=== PATIENT | female | born 2000 | race Hispanic/Latino ===

== ENCOUNTER → 2019-05-16 | Outpatient (REF) | payer OTHER, MEDICAID ==
[2019-05-16 12:45] LABS: BASO % 0.4 % (0.0-1.0); EOS # 0.2 10^3/uL (0.0-0.5); EOS % 2.5 % (0.0-3.0); HEMATOCRIT 45.1 % (36.0-47.0); HEMOGLOBIN 14.7 g/dl (12.0-15.5); LYMPH # 2.7 10^3/uL (1.5-5.0); LYMPH % 37.5 % (24.0-44.0); MEAN CORPUSCULAR HEMOGLOBIN 29.6 pg (27.0-33.0); MEAN CORPUSCULAR HGB CONC 32.6 g/dl (32.0-36.5); MEAN CORPUSCULAR VOLUME 90.7 fl (80.0-96.0); MONO # 0.7 10^3/uL (0.0-0.8); NEUTROPHILS # 3.6 10^3/uL (1.5-8.5); NEUTROPHILS % 50.5 % (36.0-66.0); PLATELET COUNT, AUTOMATED 314 10^3/uL (150-450); RED BLOOD COUNT 4.97 10^6/uL (4.00-5.40); WHITE BLOOD COUNT 7.2 10^3/uL (4.0-10.0)
[2019-05-16 12:50] LABS: ALBUMIN 3.9 GM/DL (3.2-5.2); ALT/SGPT 31 U/L (12-78); BILIRUBIN,TOTAL 0.2 MG/DL (0.2-1.0); BLOOD UREA NITROGEN 13 MG/DL (7-18); CARBON DIOXIDE LEVEL 30 MEQ/L (21-32); CHLORIDE LEVEL 105 MEQ/L (98-107); CHOLESTEROL LEVEL 160 MG/DL (<200); CHOLESTEROL RISK RATIO 2.424 (<5); CREATININE FOR GFR 0.77 MG/DL (0.55-1.30); GLUCOSE, FASTING 103 MG/DL (70-100); HDL CHOLESTEROL 66 MG/DL (>40); LDL CHOLESTEROL 76 MG/DL (<100); NON-HDL-C 94 MG/DL; POTASSIUM SERUM 4.2 MEQ/L (3.5-5.1); SODIUM LEVEL 141 MEQ/L (136-145); TOTAL PROTEIN 7.1 GM/DL (6.4-8.2); TRIGLYCERIDES LEVEL 89 MG/DL (<150)
== END ==
LOC: M LAB REF 11:44
PROVIDERS: ATTEND Family Medicine
DX: Z00.01 Encounter for general adult medical examination with abnormal findings (principal)

== ENCOUNTER 2021-04-27 12:26 | Emergency (ER) | payer BC, MEDICAID, OTHER, SELFPAY ==
[~2021-04-27] VITALS: Ht 157.5 cm; Wt 96.8 kg
[2021-04-27 14:16] VITALS: BP 125/98
== END 2021-04-27 14:20 | disposition home or self-care (01) ==
LOC: M ED 12:26
DX: J02.9 Acute pharyngitis, unspecified (principal); Z11.52 Encounter for screening for COVID-19; Z20.822 Contact with and (suspected) exposure to COVID-19; F17.200 Nicotine dependence, unspecified, uncomplicated
CPT/HCPCS: 99283; U0003

== ENCOUNTER 2025-02-11 16:33 | Emergency (ER) | payer BC ==
[~2025-02-11] VITALS: Ht 157.5 cm; Wt 85.4 kg
[2025-02-11 16:38] VITALS: TEMP 98
[2025-02-11 19:15] VITALS: BP 157/96; O2SAT 98
== END 2025-02-11 19:16 | disposition home or self-care (01) ==
LOC: M ED 16:33
DX: T19.2XXA Foreign body in vulva and vagina, initial encounter (principal); F12.10 Cannabis abuse, uncomplicated